=== PATIENT | male | born 1965 | race Caucasian/White ===

== ENCOUNTER 2016-10-16 19:08 | Outpatient (CLI) | payer OTHER ==
[~2016-10-16 19:08] MED LIST: IOHEXOL 300MG/ML 100 ML VIAL ONE
--- NOTE | 2016-10-17 10:10 | Diagnostic Imaging Report ---
CT scan abdomen and pelvis with intravenous contrast HISTORY: Pain Total DLP equals 1237 CTDI equals 9.0 Following administration of intravenous contrast, axial sections were obtained from the xiphoid process down to the pubic symphysis. The liver appears enlarged. There is suggestion of a decrease in overall parenchymal density. The findings may be associated with fatty infiltration and should be correlated with liver function tests. The spleen appears normal. No focal abnormality seen in the region of the pancreas. No focal renal lesions. Abnormal density is noted along the anterior abdominal wall and within the adjacent subcutaneous tissues in the periumbilical region. Small air collection is seen. Findings may be associated with recent surgery. Superimposed inflammatory change cannot be excluded. No discrete loculated fluid collections are seen. The exam of the pelvis demonstrates preservation of normal fat planes. No abnormal soft tissue masses or abnormal fluid collections. There is moderate enlargement of the prostate gland associated with calcifications. Colonic diverticula noted to the sigmoid region. No abnormal fluid collections. IMPRESSION: 1. Abnormal changes along the anterior abdominal wall and within the subcutaneous tissues about the periumbilical region along with a small air collection. The findings may be associated with recent surgery. Superimposed inflammatory change cannot be excluded. No discrete loculated fluid collections are seen. 2. Diverticulosis 3. Prostate enlargement 4. Hepatomegaly along with findings that may be related to fatty infiltration. The changes should be correlated with liver function tests.
== END 2016-10-16 20:40 | disposition home or self-care (01) ==
LOC: RAD 19:08
PROVIDERS: ATTEND Emergency Medicine
DX: R10.9 Unspecified abdominal pain (principal)
CPT/HCPCS: Q9967